=== PATIENT | male | born 1955 | race African-American/Black ===

== ENCOUNTER 2017-11-29 09:04 | Inpatient (IN) | payer OTHER ==
[2017-11-29 09:50] VITALS: BMI 18.9
--- NOTE | 2017-11-29 12:36 | PN ---
RENNY Progress Note Note: patient seen by [facility] nurse patient is coughing and recent diagnosed lupus x ray to rule out pneumonia
--- NOTE | 2017-11-29 13:09 | HP ---
CIWA Score - CIWA Score Nausea/Vomitin-Mild Nausea/No Vomiting Muscle Tremors: 4-Moderate,w/Arms Extend Anxiety: 4-Mod. Anxious/Guarded Agitation: 4-Moderately Restless Paroxysmal Sweats: 1-Minimal Palms Moist Orientation: 0-Oriented Tacttile Disturbances: 1-Very Mild Itch/Numbness Auditory Disturbances: 0-None Visual Disturbances: 0-None Headache: 0-None Present CIWA-Ar Total Score: 15 Admission ROS [facility] - HPI Chief Complaint: alcohol withdrawal sx transferred from [facility] to [facility] for alcohol detox patient was alcohol intoxicated on 11/28/17 treated at [facility] overnight discharged to [facility] for alcohol withdrawal sx 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 "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 times per year" last pneumonia episode 08/2017 Allergies/Adverse Reactions: Allergies Allergy/AdvReac Type Severity Reaction Status Date / Time No Known Allergies Allergy Verified 11/29/17 10:08 History of Present Illness: 62 years old male with long history of alcohol dependence has lupus arthritis chronic bronchitis and depression is admitted to detox Exam Limitations: No Limitations - Ebola screening Have you traveled outside of the country in the last 21 days: No (N) Have you had contact with anyone from an Ebola affected area: No Have you been sick,other than usual withdrawal symptoms: No Do you have a fever: No - Review of Systems Constitutional: Loss of Appetite, Changes in sleep, Unintentional Wgt. Loss, Unexplained wgt Loss EENT: reports: Blurred Vision (need eye glasses) Respiratory: reports: SOB with Exertion, Productive cough Cardiac: reports: No Symptoms Reported GI: reports: Nausea, Poor Appetite, Poor Fluid Intake, Abdominal cramping : reports: No Symptoms Reported Musculoskeletal: reports: Back Pain, Muscle Pain (arthritis), Neck Pain (knees) Integumentary: reports: Change in Color (face) Neuro: reports: Tremors Endocrine: reports: No Symptoms Reported Hematology: reports: No Symptoms Reported Psychiatric: reports: Judgement Intact, Orientated x3, Anxious, Depressed Other Systems: Reviewed and Negative Patient History - Patient Medical History Hx Anemia: No Hx Asthma: No Hx Chronic Obstructive Pulmonary Disease (COPD): No Hx Cancer: No Hx Cardiac Disorders: No Hx Congestive Heart Failure: No Hx Hypertension: No Hx Hypercholesterolemia: No Hx Pacemaker: No HX Cerebrovascular Accident: No Hx Seizures: No Hx Dementia: No Hx Diabetes: No Hx Gastrointestinal Disorders: No Hx Liver Disease: No Hx Genitourinary Disorders: No Hx Sexually Transmitted Disorders: No Hx Renal Disease (ESRD): No Hx Thyroid Disease: No Hx Human Immunodeficiency Virus (HIV): No Hx Hepatitis C: No Hx Depression: Yes Hx Suicide Attempt: No Hx Bipolar Disorder: No Hx Schizophrenia: No Other Medical History: autoimmue disease lupus - Patient Surgical History Past Surgical History: No Hx Neurologic Surgery: No Hx Cataract Extraction: No Hx Cardiac Surgery: No Hx Lung Surgery: No Hx Breast Surgery: No Hx Breast Biopsy: No Hx Abdominal Surgery: No Hx Appendectomy: No Hx Cholecystectomy: No Hx Genitourinary Surgery: No Hx Orthopedic Surgery: No - PPD History Previous Implant?: Yes Documented Results: Negative w/o proof Implanted On Prior [facility] Admission?: No PPD to be Administered?: Yes - Smoking Cessation Smoking history: Never smoked Have you smoked in the past 12 months: No Hx Chewing Tobacco Use: No Initiated information on smoking cessation: No - Substance & Tx. History Hx Alcohol Use: Yes Hx Substance Use: No Substance Use Type: Alcohol Hx Substance Use Treatment: Yes (08/2017 [facility]) - Substances Abused Alcohol-beer Route: Oral Frequency: Daily Amount used: 2-6 pks. (24 oz.) Age of first use: 12 Date of Last Use: 11/29/17 Family Disease History - Family Disease History Family Disease History: Heart Disease: Father (), Respiratory: Sister, Other: Father, Mother (thyroid) Admission Physical Exam [facility] - Vital Signs Vital Signs: Vital Signs - 24 hr 11/29/17 09:49 Temperature 100.3 F H Pulse Rate 90 Respiratory 18 Rate Blood Pressure 139/84 - Physical General Appearance: Yes: Appropriately Dressed, Mild Distress, Alcohol on Breath , Thin, Tremorous, Irritable, Sweating, Anxious HEENTM: Yes: Hearing grossly Normal, Normocephalic, Normal Voice Respiratory: Yes: Chest Non-Tender, No Respiratory Distress, No Accessory Muscle Use, Rhonchi, Wheezing Neck: Yes: Supple, Trachea in good position Breast: Yes: Breasts Symetrical, No Discharge Cardiology: Yes: Regular Rhythm, S1, S2, Tachycardia Abdominal: Yes: Non Tender, Flat, Soft, Increased Bowel Sounds Genitourinary: Yes: Within Normal Limits Back: Yes: Normal Inspection Musculoskeletal: Yes: Gait Steady (cane), Back pain, Muscle Pain Extremities: Yes: Normal Inspection, Non-Tender, Tremors Neurological: Yes: Fully Oriented, Alert, Motor Strength 5/5 (cane), Normal Response, Depressed Affect Integumentary: Yes: Warm, Other (patches skull and face) Lymphatic: Yes: Within Normal Limits - Diagnostic (1) Alcohol dependence with uncomplicated withdrawal Current Visit: Yes Status: Acute (2) Lupus anticoagulant disorder Current Visit: Yes Status: Chronic (3) 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
[2017-11-29] MEDS ORDERED: chlordiazePOXIDE HCL 25 MG CAPSULE PO PRN (13:14)
[2017-11-29] MEDS ORDERED: MAGNESIUM HYDROX 2400MG/30ML ORAL SUSPENSION 30 ML CUP PO PRN (13:14)
[2017-11-29] MEDS ORDERED: MAGNESIUM CITRATE 300 ML BOTTLE PO PRN (13:14)
[2017-11-29] MEDS ORDERED: MAG HYDROX/AL HYDROX/SIMETH 30 ML UNIT-DOSE CUP PO PRN (13:14)
[2017-11-29] MEDS ORDERED: LOPERAMIDE HCL 2 MG CAPSULE PO PRN (13:14)
[2017-11-29] MEDS ORDERED: MENTHOL/PHENOL 1 EACH UD MM PRN (13:14)
[2017-11-29] MEDS ORDERED: ACETAMINOPHEN 325 MG TABLET (FP) PO PRN (13:14)
[2017-11-29] MEDS ORDERED: guaiFENesin/D-METHORPHAN HB 10 ML UNIT-DOSE CUPS PO PRN (13:14)
[2017-11-29] MEDS ORDERED: P-EPHED 60MG/TRIPROLIDI 2.5MG TABLET PO PRN (13:14)
[2017-11-29] MEDS ORDERED: NAPROXEN 375 MG TABLET (FP) PO PRN (13:16)
[2017-11-29] MEDS ORDERED: ALBUTEROL SO4 0.083% IH SOL 2.5 MG/3 ML VIAL.NEB. NEB PRN (13:26)
[2017-11-29] MEDS ORDERED: predniSONE 20 MG TABLET (UD) PO ONE (14:30)
[2017-11-29] MEDS: chlordiazePOXIDE HCL 25 MG CAPSULE PO SCH ×2 (16:46→22:05)
[2017-11-29 18:06] LABS: URINE APPEARANCE CLEAR; URINE BILIRUBIN NEGATIVE (<2.0 mg/dL); URINE COLOR LTYELLOW; URINE GLUCOSE (UA) NEGATIVE (NEGATIVE); URINE KETONE NEGATIVE (NEGATIVE); URINE LEUK ESTERASE NEGATIVE (NEGATIVE); URINE NITRITE NEGATIVE (NEGATIVE); URINE PROTEIN NEGATIVE (NEGATIVE); URINE UROBILINOGEN NEGATIVE mg/dL (0.2-1.0)
[2017-11-29] MEDS: THIAMINE HCL 100 MG TABLET (FP) PO SCH (22:04)
[2017-11-29] MEDS: MINERAL OIL/PETROLAT/WATER TOPICAL CREAM 113 GM JAR TP SCH (22:06)
[2017-11-30] MEDS: chlordiazePOXIDE HCL 25 MG CAPSULE PO SCH ×4 (05:20→22:11)
--- NOTE | 2017-11-30 08:52 | CONSULT ---
[facility] Psychiatric Consult - Data Date of interview: 11/30/17 Admission source: [facility] Identifying data: Patient is a 62 year old male, father of two, unemployed, living with his mother and supported by food stamps. Patient admitted to for alcohol dependence. Substance Abuse History: PPD History. Previous Implant?: Yes. Documented Results: Negative w/o proof. Implanted On Prior [facility] Admission?: No. PPD to be Administered?: Yes. - Smoking Cessation. Smoking history: Never smoked. Have you smoked in the past 12 months: No. Hx Chewing Tobacco Use: No. Initiated information on smoking cessation: No. - Substance & Tx. History. Hx Alcohol Use: Yes. Hx Substance Use: No. Substance Use Type: Alcohol. Hx Substance Use Treatment: Yes (08/2017 [facility]). - Substances Abused. Alcohol- beer. Route: Oral. Frequency: Daily. Amount used: 2-6 pks. (24 oz.). Age of first use: 12. Date of Last Use: 11/29/17 Medical History: autoimmue disease lupus Psychiatric History: Patient denies h/o psychiatric hospitalization, outpatient care and suicide attempt. Reports only seeing a psychiatrist when admitted to a detox/rehab facility. Physical/Sexual Abuse/Trauma History: Denies. Mental Status Exam - Mental Status Exam Alert and Oriented to: Time, Place, Person Cognitive Function: Good Patient Appearance: Unkempt Mood: Euthymic Affect: Mood Congruent Patient Behavior: Cooperative Speech Pattern: Appropriate Voice Loudness: Normal Thought Process: Intact, Goal Oriented Thought Disorder: Not Present Hallucinations: Denies Suicidal Ideation: Denies Homicidal Ideation: Denies Insight/Judgement: Poor Sleep: Fair Appetite: Fair Muscle strength/Tone: Normal Gait/Station: Normal Psychiatric Findings - Problem List ([place] 1, 2,3) (1) Alcohol dependence with uncomplicated withdrawal Current Visit: Yes Status: Acute (2) 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 Detoxification in progress. Observation.
[2017-11-30] MEDS: PRENATAL VITAMINS W/ FOLIC ACID TABLET (FP) PO SCH (10:14)
[2017-11-30] MEDS: predniSONE 10 MG TABLET (UD) PO SCH (10:14)
[2017-11-30 10:17] LABS: HEMOGLOBIN 11.3 GM/dL (11.7-16.9); MCH 27.9 pg (25.7-33.7); MCHC 33.2 g/dl (32.0-35.9); MEAN PLT VOLUME 8.5 fl (7.5-11.1); PLATELET COUNT 209 K/MM3 (134-434); RBC 4.05 M/mm3 (4.00-5.60); RDW 16.9 % (11.9-15.9); WHITE BLOOD COUNT 6.5 K/mm3 (4.0-10.0)
[2017-11-30 10:53] LABS: ALBUMIN 2.9 g/dl (3.4-5.0); ANION GAP 8 (8-16); BILIRUBIN,TOTAL 0.3 mg/dL (0.2-1.0); BLOOD UREA NITROGEN 6 mg/dL (7-18); CALCIUM 8.5 mg/dL (8.5-10.1); CHLORIDE 97 mmol/L (98-107); CO2 31 mmol/L (21-32); CREATININE 0.7 mg/dL (0.7-1.3); GLUCOSE,RANDOM 75 mg/dL (74-106); POTASSIUM 4.2 mmol/L (3.5-5.1); SGOT/AST 51 U/L (15-37); SGPT/ALT 25 U/L (12-78); SODIUM 136 mmol/L (136-145); TOT PROT 10.4 g/dl (6.4-8.2)
[2017-11-30 10:54] LABS: ALK PHOS 114 U/L (45-117)
[2017-11-30] MEDS: NAPROXEN 375 MG TABLET (FP) PO SCH ×2 (12:01→22:11)
--- NOTE | 2017-11-30 13:16 | PN ---
[facility] CIWA - CIWA Score Nausea/Vomitin-No Nausea/No Vomiting Muscle Tremors: None Anxiety: 3 Agitation: 2 Paroxysmal Sweats: 3 Orientation: 0-Oriented Tacttile Disturbances: 2-Mild Itch/Numbness/Burn Auditory Disturbances: 2-Mild Harshness/Frighten Visual Disturbances: 3-Moderate Sensitivity Headache: 0-None Present CIWA-Ar Total Score: 15 S Progress Note (SOAP) Subjective: Sweating, Fatigue, Body Aches, Diarrhea, Interrupted Sleep. Objective: PATIENT A & O X 3, OBSERVED AMBULATING ON UNIT. NO ACUTE DISTRESS. PATIENT SENT FOR CXR YESTERDAY AFTER REPORTING PRODUCTIVE COUGH. LUNG SOUNDS AUSCULTATED CLEAR AND EQUAL BILATERALLY. 11/30/17 13:13 Vital Signs Temperature 98.8 F 11/30/17 10:23 Pulse Rate 86 11/30/17 10:23 Respiratory Rate 18 11/30/17 10:23 Blood Pressure 123/76 11/30/17 10:23 O2 Sat by Pulse Oximetry (%) Laboratory Tests 11/29/17 11/29/17 11/30/17 13:00 17:00 06:00 WBC 6.5 RBC 4.05 Hgb 11.3 L Hct 34.0 L MCV 84.0 MCH 27.9 MCHC 33.2 RDW 16.9 H Plt Count 209 MPV 8.5 Sodium Potassium Chloride Carbon Dioxide Anion Gap BUN Creatinine Creat Clearance w eGFR Random Glucose Calcium Total Bilirubin AST ALT Alkaline Phosphatase Total Protein Albumin Urine Color Ltyellow Urine Appearance Clear Urine pH 6.0 Ur Specific [place] 1.009 Urine Protein Negative Urine Glucose (UA) Negative Urine Ketones Negative Urine Blood Negative Urine Nitrite Negative Urine Bilirubin Negative Urine Urobilinogen Negative Ur Leukocyte Esterase Negative RPR Titer HIV 1&2 Antibody Screen Negative HIV P24 Antigen Negative 11/30/17 11/30/17 06:00 06:00 WBC RBC Hgb Hct MCV MCH MCHC RDW Plt Count MPV Sodium 136 Potassium 4.2 Chloride 97 L Carbon Dioxide 31 Anion Gap 8 BUN 6 L Creatinine 0.7 Creat Clearance w eGFR > 60 Random Glucose 75 Calcium 8.5 Total Bilirubin 0.3 AST 51 H ALT 25 Alkaline Phosphatase 114 Total Protein 10.4 H Albumin 2.9 L Urine Color Urine Appearance Urine pH Ur Specific [place] Urine Protein Urine Glucose (UA) Urine Ketones Urine Blood Urine Nitrite Urine Bilirubin Urine Urobilinogen Ur Leukocyte Esterase RPR Titer Nonreactive HIV 1&2 Antibody Screen HIV P24 Antigen LABS NOTED. 11/30/17 13:17 Assessment: 11/30/17 13:14 WITHDRAWAL SYMPTOMS. Plan: CONTINUE DETOX. AZITHROMYCIN, 50 MG PO X 1 TODAY, THEN 250 MG PO DAILY X 4 DAYS FOR URI PROPHYLAXIS. INCREASE DAILY PO FLUID INTAKE. PRN IMMODIUM FOR DIARRHEA.
[2017-11-30] MEDS ORDERED: AZITHROMYCIN 250 MG TABLET PO ONE (14:00)
--- NOTE | 2017-11-30 14:27 | EKG ---
Test Reason : Blood Pressure : / mmHG Vent. Rate : 097 BPM Atrial Rate : 097 BPM P-R Int : 164 ms QRS Dur : 102 ms QT Int : 360 ms P-R-T Axes : 080 -58 061 degrees QTc Int : 457 ms NORMAL SINUS RHYTHM POSSIBLE LEFT ATRIAL ENLARGEMENT INCOMPLETE RIGHT BUNDLE BRANCH BLOCK LEFT ANTERIOR FASCICULAR BLOCK LEFT VENTRICULAR HYPERTROPHY WITH REPOLARIZATION ABNORMALITY CANNOT RULE OUT ANTERIOR INFARCT , AGE UNDETERMINED ABNORMAL ECG NO PREVIOUS ECGS AVAILABLE Confirmed by JANES SARGENT MD ([id number]) on 11/30/2017 2:27:08 PM Referred By: Confirmed By:JANES SARGENT MD
[2017-11-30] MEDS: THIAMINE HCL 100 MG TABLET (FP) PO SCH (22:11)
[2017-11-30] MEDS: MINERAL OIL/PETROLAT/WATER TOPICAL CREAM 113 GM JAR TP SCH (22:12)
[2017-11-30] MEDS: MELATONIN 5 MG TABLETS PO PRN (22:12)
[2017-12-01] MEDS: chlordiazePOXIDE HCL 25 MG CAPSULE PO SCH ×2 (05:26→10:49)
[2017-12-01] MEDS ORDERED: predniSONE 20 MG TABLET (UD) PO ONE (10:00)
[2017-12-01] MEDS ORDERED: AZITHROMYCIN 250 MG TABLET PO SCH (10:00)
[2017-12-01] MEDS: NAPROXEN 375 MG TABLET (FP) PO SCH ×2 (10:48→22:06)
[2017-12-01] MEDS: AZITHROMYCIN 250 MG TABLET PO SCH (10:49)
[2017-12-01] MEDS: PRENATAL VITAMINS W/ FOLIC ACID TABLET (FP) PO SCH (10:49)
[2017-12-01] MEDS: predniSONE 10 MG TABLET (UD) PO SCH (11:50)
--- NOTE | 2017-12-01 15:29 | PN ---
S CIWA - CIWA Score Nausea/Vomitin-No Nausea/No Vomiting Muscle Tremors: 3 Anxiety: 3 Agitation: 1-Slight > Activity Paroxysmal Sweats: 4-Forehead w/Sweat Beads Orientation: 0-Oriented Tacttile Disturbances: 2-Mild Itch/Numbness/Burn Auditory Disturbances: 0-None Visual Disturbances: 2-Mild Sensitivity Headache: 0-None Present CIWA-Ar Total Score: 15 BHS Progress Note (SOAP) Subjective: Sweating, Tremors, Fatigue, Anxious. Objective: PATIENT A & O X 3. NO ACUTE DISTRESS. 12/01/17 15:27 Vital Signs Temperature 97.0 F L 12/01/17 14:24 Pulse Rate 85 12/01/17 14:24 Respiratory Rate 16 12/01/17 14:24 Blood Pressure 124/77 12/01/17 14:24 O2 Sat by Pulse Oximetry (%) Laboratory Tests 11/29/17 11/29/17 11/30/17 13:00 17:00 06:00 WBC 6.5 RBC 4.05 Hgb 11.3 L Hct 34.0 L MCV 84.0 MCH 27.9 MCHC 33.2 RDW 16.9 H Plt Count 209 MPV 8.5 Sodium Potassium Chloride Carbon Dioxide Anion Gap BUN Creatinine Creat Clearance w eGFR Random Glucose Calcium Total Bilirubin AST ALT Alkaline Phosphatase Total Protein Albumin Urine Color Ltyellow Urine Appearance Clear Urine pH 6.0 Ur Specific [place] 1.009 Urine Protein Negative Urine Glucose (UA) Negative Urine Ketones Negative Urine Blood Negative Urine Nitrite Negative Urine Bilirubin Negative Urine Urobilinogen Negative Ur Leukocyte Esterase Negative RPR Titer HIV 1&2 Antibody Screen Negative HIV P24 Antigen Negative 11/30/17 11/30/17 06:00 06:00 WBC RBC Hgb Hct MCV MCH MCHC RDW Plt Count MPV Sodium 136 Potassium 4.2 Chloride 97 L Carbon Dioxide 31 Anion Gap 8 BUN 6 L Creatinine 0.7 Creat Clearance w eGFR > 60 Random Glucose 75 Calcium 8.5 Total Bilirubin 0.3 AST 51 H ALT 25 Alkaline Phosphatase 114 Total Protein 10.4 H Albumin 2.9 L Urine Color Urine Appearance Urine pH Ur Specific [place] Urine Protein Urine Glucose (UA) Urine Ketones Urine Blood Urine Nitrite Urine Bilirubin Urine Urobilinogen Ur Leukocyte Esterase RPR Titer Nonreactive HIV 1&2 Antibody Screen HIV P24 Antigen LABS NOTED. Assessment: 12/01/17 15:28 WITHDRAWAL SYMPTOMS. Plan: CONTINUE DETOX.
[2017-12-01] MEDS: chlordiazePOXIDE 5 MG CAPSULE PO SCH ×2 (16:59→22:06)
[2017-12-01] MEDS: MELATONIN 5 MG TABLETS PO PRN (22:06)
[2017-12-01] MEDS: THIAMINE HCL 100 MG TABLET (FP) PO SCH (22:06)
[2017-12-01] MEDS: MINERAL OIL/PETROLAT/WATER TOPICAL CREAM 113 GM JAR TP SCH (22:07)
[2017-12-02] MEDS: chlordiazePOXIDE 5 MG CAPSULE PO SCH ×2 (05:27→10:50)
[2017-12-02] MEDS ORDERED: predniSONE 10 MG TABLET (UD) PO ONE (10:00)
[2017-12-02] MEDS: NAPROXEN 375 MG TABLET (FP) PO SCH ×2 (10:50→22:08)
[2017-12-02] MEDS: PRENATAL VITAMINS W/ FOLIC ACID TABLET (FP) PO SCH (10:50)
[2017-12-02] MEDS: AZITHROMYCIN 250 MG TABLET PO SCH (10:51)
--- NOTE | 2017-12-02 15:13 | PN ---
[facility] Progress Note (SOAP) Subjective: Sweating, Anxious, Fatigue. Objective: PATIENT A & O X 3, OBSERVED AMBULATING ON UNIT. NO ACUTE DISTRESS. 12/02/17 15:06 Vital Signs Temperature 97.6 F 12/02/17 14:23 Pulse Rate 93 H 12/02/17 14:23 Respiratory Rate 20 12/02/17 14:23 Blood Pressure 102/64 12/02/17 14:23 O2 Sat by Pulse Oximetry (%) Laboratory Tests 11/29/17 11/29/17 11/30/17 13:00 17:00 06:00 WBC 6.5 RBC 4.05 Hgb 11.3 L Hct 34.0 L MCV 84.0 MCH 27.9 MCHC 33.2 RDW 16.9 H Plt Count 209 MPV 8.5 Sodium Potassium Chloride Carbon Dioxide Anion Gap BUN Creatinine Creat Clearance w eGFR Random Glucose Calcium Total Bilirubin AST ALT Alkaline Phosphatase Total Protein Albumin Urine Color Ltyellow Urine Appearance Clear Urine pH 6.0 Ur Specific [place] 1.009 Urine Protein Negative Urine Glucose (UA) Negative Urine Ketones Negative Urine Blood Negative Urine Nitrite Negative Urine Bilirubin Negative Urine Urobilinogen Negative Ur Leukocyte Esterase Negative RPR Titer HIV 1&2 Antibody Screen Negative HIV P24 Antigen Negative 11/30/17 11/30/17 06:00 06:00 WBC RBC Hgb Hct MCV MCH MCHC RDW Plt Count MPV Sodium 136 Potassium 4.2 Chloride 97 L Carbon Dioxide 31 Anion Gap 8 BUN 6 L Creatinine 0.7 Creat Clearance w eGFR > 60 Random Glucose 75 Calcium 8.5 Total Bilirubin 0.3 AST 51 H ALT 25 Alkaline Phosphatase 114 Total Protein 10.4 H Albumin 2.9 L Urine Color Urine Appearance Urine pH Ur Specific [place] Urine Protein Urine Glucose (UA) Urine Ketones Urine Blood Urine Nitrite Urine Bilirubin Urine Urobilinogen Ur Leukocyte Esterase RPR Titer Nonreactive HIV 1&2 Antibody Screen HIV P24 Antigen LABS NOTED. Assessment: 12/02/17 15:06 WITHDRAWAL SYMPTOMS. Plan: CONTINUE DETOX. PATIENT ADVISED TO FOLLOW-UP WITH [facility] DR. SHELIA AMEZQUITA ([place] AFTER DISCHARGE FROM DETOX FOR MEDICAL ASSESSMENT AND FOR FOLLOW-UP FOR HISTORY OF LUPUS AND FOR ABNORMALITIES NOTED ON CXR WHILE ADMITTED FOR DETOX. PRESCRIPTIONS FOR FOLLOW-UP FOR PREDNISONE AND Z-PACK STARTED WHILE PATIENT ADMITTED FOR DETOX SENT TO PATIENT'S PHARMACY ([facility], [facility] . PATIENT SCHEDULED FOR D/C TOMORROW.
[2017-12-02] MEDS: chlordiazePOXIDE HCL 10 MG CAPSULE PO SCH ×2 (17:16→22:07)
[2017-12-02] MEDS: THIAMINE HCL 100 MG TABLET (FP) PO SCH (22:07)
[2017-12-02] MEDS: MINERAL OIL/PETROLAT/WATER TOPICAL CREAM 113 GM JAR TP SCH (22:08)
[2017-12-03] MEDS: chlordiazePOXIDE HCL 10 MG CAPSULE PO SCH ×2 (06:13→11:01)
[2017-12-03 06:49] VITALS: BP 131/83; PULSE 67; TEMP 97.1
[2017-12-03] MEDS ORDERED: predniSONE 20 MG TABLET (UD) PO ONE ×2 (07:00→10:00)
[2017-12-03] MEDS: NAPROXEN 375 MG TABLET (FP) PO SCH (11:01)
[2017-12-03] MEDS: PRENATAL VITAMINS W/ FOLIC ACID TABLET (FP) PO SCH (11:02)
[2017-12-03] MEDS: AZITHROMYCIN 250 MG TABLET PO SCH (11:02)
--- NOTE | 2017-12-03 14:49 | PN ---
[facility] Progress Note (SOAP) Subjective: pt going home today Objective: 12/03/17 14:39 Vital Signs - 24 hr 12/02/17 12/02/17 12/03/17 17:45 22:00 00:30 Temperature 97.9 F 98.2 F Pulse Rate 80 88 Respiratory 18 18 18 Rate Blood Pressure 118/72 139/81 12/03/17 12/03/17 03:30 06:48 Temperature 97.1 F L Pulse Rate 67 Respiratory 18 18 Rate Blood Pressure 131/83 Laboratory Tests 11/29/17 11/29/17 11/30/17 13:00 17:00 06:00 WBC 6.5 RBC 4.05 Hgb 11.3 L Hct 34.0 L MCV 84.0 MCH 27.9 MCHC 33.2 RDW 16.9 H Plt Count 209 MPV 8.5 Sodium Potassium Chloride Carbon Dioxide Anion Gap BUN Creatinine Creat Clearance w eGFR Random Glucose Calcium Total Bilirubin AST ALT Alkaline Phosphatase Total Protein Albumin Urine Color Ltyellow Urine Appearance Clear Urine pH 6.0 Ur Specific [place] 1.009 Urine Protein Negative Urine Glucose (UA) Negative Urine Ketones Negative Urine Blood Negative Urine Nitrite Negative Urine Bilirubin Negative Urine Urobilinogen Negative Ur Leukocyte Esterase Negative RPR Titer HIV 1&2 Antibody Screen Negative HIV P24 Antigen Negative 11/30/17 11/30/17 06:00 06:00 WBC RBC Hgb Hct MCV MCH MCHC RDW Plt Count MPV Sodium 136 Potassium 4.2 Chloride 97 L Carbon Dioxide 31 Anion Gap 8 BUN 6 L Creatinine 0.7 Creat Clearance w eGFR > 60 Random Glucose 75 Calcium 8.5 Total Bilirubin 0.3 AST 51 H ALT 25 Alkaline Phosphatase 114 Total Protein 10.4 H Albumin 2.9 L Urine Color Urine Appearance Urine pH Ur Specific [place] Urine Protein Urine Glucose (UA) Urine Ketones Urine Blood Urine Nitrite Urine Bilirubin Urine Urobilinogen Ur Leukocyte Esterase RPR Titer Nonreactive HIV 1&2 Antibody Screen HIV P24 Antigen Assessment: 12/03/17 14:49 alcohol withdrawal sx transferred from [facility] to [facility] for alcohol detox patient was alcohol intoxicated on 11/28/17 treated at [facility] overnight discharged to [facility] for alcohol withdrawal sx 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
--- NOTE | 2017-12-03 14:51 | DS ---
[facility] Detox Discharge Summary Admission Date: 11/29/17 Discharge Date: 12/03/17 - History Present History: Alcohol Dependence - Physical Exam Results Vital Signs: Vital Signs Temperature 97.1 F L 12/03/17 06:48 Pulse Rate 67 12/03/17 06:48 Respiratory Rate 18 12/03/17 06:48 Blood Pressure 131/83 12/03/17 06:48 O2 Sat by Pulse Oximetry (%) Pertinent Admission Physical Exam Findings: alcohol withdrawal sx transferred from [facility] to [facility] for alcohol detox patient was alcohol intoxicated on 11/28/17 treated at [facility] overnight discharged to [facility] for alcohol withdrawal sx 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
== END 2017-12-03 12:06 | disposition home or self-care (01) | DRG 775 ==
LOC: YASAS 09:04 → Y3N 13:09
PROVIDERS: ADMIT Surgery; ATTEND Surgery
PROC: HZ2ZZZZ Detoxification Services for Substance Abuse Treatment (ICD-10-PCS; principal; 2017-11-29)
DX: F10.230 Alcohol dependence with withdrawal, uncomplicated (principal); F34.1 Dysthymic disorder; F19.24 Other psychoactive substance dependence with psychoactive substance-induced mood disorder; D68.62 Lupus anticoagulant syndrome; L51.9 Erythema multiforme, unspecified; M14.80 Arthropathies in other specified diseases classified elsewhere, unspecified site; R63.4 Abnormal weight loss; Z68.1 Body mass index [BMI] 19.9 or less, adult
CPT/HCPCS: 36415; 71046-TC-FY; 80053; 81003; 85027; 86593; 87389; 93005; 93010